=== PATIENT | female | born 1990 | race African-American/Black ===

== ENCOUNTER 2017-08-15 12:30 | Inpatient (IN) | payer SELFPAY ==
[~2017-08-15] VITALS: Ht 162.6 cm; Wt 53.1 kg
[2017-08-15] MEDS ORDERED: SODIUM CHLORIDE 0.9% 1,000 ML IV ONE (12:45)
[2017-08-15] MEDS ORDERED: ONDANSETRON HCL 4MG/2ML VIAL IV STA (12:45)
[2017-08-15] MEDS ORDERED: KETOROLAC 30MG/ML VIAL IV STA (12:45)
[2017-08-15 13:31] LABS: BASOPHILS % 0.6 % (0.0-2.0); EOSINOPHILS % 0.3 % (0.0-5.0); HEMATOCRIT. 35.4 % (36.0-48.0); HEMOGLOBIN. 11.4 g/dL (12.0-16.0); LYMPHOCYTES % 22.7 % (20.0-50.0); MEAN CORPUSCULAR HEMOGLOBIN 22.2 pg (28.0-32.0); MEAN CORPUSCULAR VOLUME 69.1 fL (81.0-99.0); MONOCYTES % 5.7 % (2.0-8.0); NEUTROPHILS % 70.7 % (40.0-76.0); PLATELET 182 x1000/uL (130-400); RED BLOOD CELL COUNT 5.12 mill/uL (4.2-5.4); RED CELL DISTRIBUTION WIDTH 15.5 % (11.6-14.6)
[2017-08-15 13:38] LABS: CLARITY URINE TURBID (CLEAR); COLOR URINE RED (YELLOW); KETONES URINE NEGATIVE (NEGATIVE); LEUKOCYTE ESTERASE URINE 1+ (NEGATIVE); NITRITE URINE NEGATIVE (NEGATIVE); OCCULT BLOOD URINE 3+ (NEGATIVE); PH URINE >=9.0 (4.5-8.0); PROTEIN URINE 1+ (NEGATIVE); SPECIFIC GRAVITY URINE 1.015 (1.005-1.030); UROBILINOGEN URINE 0.2 E.U./dL (0.2-1.0)
[2017-08-15 13:38] LABS: CHLORIDE 106 mEq/L (98-107)
[2017-08-15 13:39] LABS: INR 1.1; PROTHROMBIN TIME 11.9 sec (9.4-11.6)
[2017-08-15 14:02] LABS: PLATELET ESTIMATE NORMAL
[2017-08-15] MEDS ORDERED: MORPHINE SULFATE 2 MG/ML CPJ (NOT FOR IM USE) IV ONE (16:45)
[2017-08-15] MEDS ORDERED: TAMSULOSIN HCL 0.4MG SR CAPSULE PO ONE (16:45)
[2017-08-15] MEDS ORDERED: LEVOFLOXACIN 750MG PREMIX 150 ML IV ONE (17:15)
[2017-08-15] MEDS ORDERED: ONDANSETRON HCL 4MG/2ML VIAL IV ONE (17:30)
[2017-08-15] MEDS ORDERED: DOCUSATE SODIUM 100MG CAPSULE PO PRN (18:30)
[2017-08-15] MEDS ORDERED: CLONIDINE 0.1MG TABLET PO PRN (18:30)
[2017-08-15] MEDS ORDERED: ACETAMINOPHEN 650MG SUPP PR PRN (18:30)
[2017-08-15] MEDS ORDERED: HYDROCODONE/ACETAMINOPHEN 10/325MG TABLET PO PRN (18:30)
[2017-08-15] MEDS ORDERED: GUAIFENESIN 200MG/10ML SUGAR FREE UDC PO PRN (18:30)
[2017-08-15] MEDS ORDERED: NA PHOS,M-B/NA PHOS,DI-BA ENEMA 118ML PR PRN (18:30)
[2017-08-15] MEDS ORDERED: MORPHINE SULFATE 4 MG/ML CPJ (NOT FOR IM USE) IV PRN (18:30)
[2017-08-15] MEDS ORDERED: HYDROCODONE/ACETAMINOPHEN 5/325MG TABLET PO PRN (18:30)
[2017-08-15] MEDS ORDERED: MAGNESIUM/ALUMINUM HYDROXIDE/SIMETHICONE 30ML UDC PO PRN (18:30)
[2017-08-15] MEDS ORDERED: IPRATROPIUM/ALBUTEROL 0.5-3(2.5)MG/3ML NEB INH PRN (18:30)
[2017-08-15] MEDS ORDERED: ACETAMINOPHEN 650MG/20.3ML UDC GT PRN (18:30)
[2017-08-15] MEDS ORDERED: DIPHENHYDRAMINE 50MG/ML VIAL IV PRN (18:30)
[2017-08-15] MEDS: SODIUM CHLORIDE 0.9% INJ 3ML FLUSH IVF SCH (22:00)
[2017-08-15 22:25] VITALS: BP 106/73
[2017-08-15] MEDS ORDERED: BIOT1CAP3 MT (22:41)
[2017-08-15] MEDS ORDERED: ONDANSETRON HCL 4MG/2ML VIAL IV PRN (22:45)
[2017-08-15] MEDS: SODIUM CHLORIDE 0.9% 1,000 ML IV SCH (22:51)
[2017-08-15] MEDS: METOCLOPRAMIDE HCL 10MG/2ML VIAL IV SCH (23:33)
[2017-08-15 23:57] VITALS: BP 106/73
[2017-08-16 04:00] VITALS: BP 91/46
[2017-08-16] MEDS: METOCLOPRAMIDE HCL 10MG/2ML VIAL IV SCH ×3 (05:19→17:53)
[2017-08-16] MEDS: SODIUM CHLORIDE 0.9% INJ 3ML FLUSH IVF SCH ×3 (05:19→21:44)
[2017-08-16 07:50] LABS: CHLORIDE 109 mEq/L (98-107)
[2017-08-16 07:58] LABS: BASOPHILS % 0.4 % (0.0-2.0); EOSINOPHILS % 0.1 % (0.0-5.0); HEMATOCRIT. 30.5 % (36.0-48.0); HEMOGLOBIN. 9.7 g/dL (12.0-16.0); LYMPHOCYTES % 18.7 % (20.0-50.0); MEAN CORPUSCULAR HEMOGLOBIN 22.2 pg (28.0-32.0); MEAN CORPUSCULAR VOLUME 70.1 fL (81.0-99.0); MEAN PLATELET VOLUME 11.3 fl (7.4-10.4); MONOCYTES % 9.1 % (2.0-8.0); NEUTROPHILS % 71.7 % (40.0-76.0); PLATELET 146 x1000/uL (130-400); RED BLOOD CELL COUNT 4.35 mill/uL (4.2-5.4); RED CELL DISTRIBUTION WIDTH 15.3 % (11.6-14.6)
[2017-08-16 08:00] VITALS: BP 84/42
[2017-08-16 08:15] LABS: LDL CHOLESTEROL 60 mg/dL (5-100)
[2017-08-16 08:17] LABS: HDL CHOLESTEROL 59 mg/dL (40-59)
[2017-08-16] MEDS: FAMOTIDINE 20MG/2ML VIAL IV SCH ×2 (08:36→21:44)
[2017-08-16 11:15] LABS: *BARBITURATES SCREEN URINE NEGATIVE (NEGATIVE)
[2017-08-16 11:16] LABS: *AMPHETAMINES SCREEN URINE NEGATIVE (NEGATIVE); *BENZODIAZEPINES SCREEN URINE NEGATIVE (NEGATIVE); *COCAINE SCREEN URINE NEGATIVE (NEGATIVE); METHADONE URINE SCREEN NEGATIVE (NEGATIVE); OPIATES URINE SCREEN NEGATIVE (NEGATIVE); PHENCYCLIDINE URINE SCREEN NEGATIVE (NEGATIVE)
[2017-08-16 11:17] LABS: CANNABINOID URINE SCREEN NEGATIVE (NEGATIVE)
[2017-08-16 12:00] VITALS: BP 94/61
[2017-08-16 16:00] VITALS: BP 84/55
[2017-08-16] MEDS ORDERED: LEVO500T2 MT (16:00)
[2017-08-16] MEDS: SODIUM CHLORIDE 0.9% 1,000 ML IV SCH (16:19)
[2017-08-16 16:52] VITALS: BP 94/59
[2017-08-16] MEDS ORDERED: LEVOFLOXACIN 500MG PREMIX 100 ML IV SCH (17:00)
[2017-08-16 20:00] VITALS: BP 101/59
[2017-08-17] VITALS: BP 104/59
[2017-08-17] MEDS: METOCLOPRAMIDE HCL 10MG/2ML VIAL IV SCH ×3 (00:02→11:21)
[2017-08-17] MEDS: SODIUM CHLORIDE 0.9% 1,000 ML IV SCH ×2 (00:02→10:14)
[2017-08-17] MEDS: ACETAMINOPHEN 325MG TABLET PO PRN ×2 (01:19→13:42)
[2017-08-17 04:00] VITALS: BP 92/59
[2017-08-17] MEDS: SODIUM CHLORIDE 0.9% INJ 3ML FLUSH IVF SCH ×3 (05:35→22:16)
[2017-08-17 08:00] VITALS: BP 94/59
[2017-08-17] MEDS: FAMOTIDINE 20MG/2ML VIAL IV SCH ×2 (09:14→22:15)
[2017-08-17] MEDS ORDERED: SULFAMETHOXAZOLE/TRIMETHOPRIM 800/160MG TABLET PO SCH (09:15)
[2017-08-17] MEDS ORDERED: NITROFURANTOIN 100MG M/M CAPSULE PO SCH (10:30)
[2017-08-17 10:31] LABS: CHLORIDE 108 mEq/L (98-107)
[2017-08-17 11:53] LABS: BASOPHILS % 1.1 % (0.0-2.0); EOSINOPHILS % 0.2 % (0.0-5.0); HEMATOCRIT. 33.5 % (36.0-48.0); HEMOGLOBIN. 10.6 g/dL (12.0-16.0); LYMPHOCYTES % 23.2 % (20.0-50.0); MEAN CORPUSCULAR HEMOGLOBIN 22.3 pg (28.0-32.0); MEAN CORPUSCULAR VOLUME 70.7 fL (81.0-99.0); MONOCYTES % 12.1 % (2.0-8.0); NEUTROPHILS % 63.4 % (40.0-76.0); RED BLOOD CELL COUNT 4.73 mill/uL (4.2-5.4); RED CELL DISTRIBUTION WIDTH 15.5 % (11.6-14.6)
[2017-08-17 12:00] VITALS: BP 109/70
[2017-08-17 13:05] LABS: PLATELET 155 x1000/uL (130-400)
[2017-08-17 16:00] VITALS: BP 93/58
[2017-08-17] MEDS: CEFAZOLIN 1000MG PREMIX 50 ML IV SCH (16:46)
[2017-08-17 20:00] VITALS: BP 105/62
[2017-08-17] MEDS: NITROFURANTOIN 100MG M/M CAPSULE PO SCH (22:16)
[2017-08-18] VITALS: BP 108/66
[2017-08-18] MEDS: CEFAZOLIN 1000MG PREMIX 50 ML IV SCH ×2 (01:27→09:14)
[2017-08-18 04:00] VITALS: BP 102/64
[2017-08-18] MEDS: SODIUM CHLORIDE 0.9% INJ 3ML FLUSH IVF SCH (06:19)
[2017-08-18] MEDS ORDERED: NITR100C MT (08:42)
[2017-08-18 09:12] VITALS: BP 99/61
[2017-08-18] MEDS: FAMOTIDINE 20MG/2ML VIAL IV SCH (09:14)
[2017-08-18] MEDS: NITROFURANTOIN 100MG M/M CAPSULE PO SCH (09:14)
[2017-08-18 10:58] LABS: HEMATOCRIT. 31.3 % (36.0-48.0); HEMOGLOBIN. 9.9 g/dL (12.0-16.0); MEAN CORPUSCULAR VOLUME 69.3 fL (81.0-99.0); MEAN PLATELET VOLUME 10.5 fl (7.4-10.4); PLATELET 150 x1000/uL (130-400); RED BLOOD CELL COUNT 4.51 mill/uL (4.2-5.4); RED CELL DISTRIBUTION WIDTH 15.1 % (11.6-14.6)
[2017-08-18 11:07] LABS: CHLORIDE 105 mEq/L (98-107)
[2017-08-18 11:59] VITALS: BP 102/70
[2017-08-18 12:08] LABS: PLATELET ESTIMATE NORMAL
[2017-08-18] MEDS ORDERED: POTASSIUM CHLORIDE 20MEQ TABLET SR PO NR (12:30)
== END 2017-08-18 13:54 | disposition home or self-care (01) | DRG 463 ==
LOC: ER 12:30 → 6EST 17:05 → ENRESERV 18:20
PROVIDERS: ADMIT Family Medicine; ATTEND Family Medicine
DX: N13.6 Pyonephrosis (principal); E86.0 Dehydration; Z60.2 Problems related to living alone; Z88.0 Allergy status to penicillin; Z87.442 Personal history of urinary calculi; Z79.899 Other long term (current) drug therapy; Z88.8 Allergy status to other drugs, medicaments and biological substances
CPT/HCPCS: 36415; 73502; 73590; 73610; 74176; 76770; 80053; 80061; 80305; 81003; 81025; 82962; 83605; 83690; 85018; 85025; 85610; 87040; 87077; 87086; 87186; 93005; 96365; 96366; 96375; 96376; 99285; J0690; J1885; J1956; J2270; J2405; J2765; J3490; J7030